=== PATIENT | male | born 1975 | race Caucasian/White ===

== ENCOUNTER 2021-09-23 01:59 | Outpatient (CLI) | payer MEDICAID, SELFPAY ==
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
== END 2021-09-23 02:19 ==
PROVIDERS: PCP Nurse Practitioner Family; Visit Provider Physician Assistant
DX: M25.561 Pain in right knee (principal); M25.461 Effusion, right knee; M17.11 Unilateral primary osteoarthritis, right knee
CPT/HCPCS: 73562

== ENCOUNTER 2021-10-17 14:52 | Outpatient (REF) | payer MEDICAID, SELFPAY ==
[2021-10-17 15:28] LABS: HCT 51.5 % (40.0-50.0); HGB 16.6 g/dL (13.5-17.5); MCH 30.5 pg (27.0-33.0); MCHC 32.2 % (32.0-36.0); MCV 95 fL (80-95); MPV 10.5 fL (8.0-11.0); Platelet Count 268 10^3/uL (130-400); RBC 5.45 10^6/uL (4.36-5.78); RDW 12.8 % (11.8-14.1); RDW-SD 44.6 fL; WBC 12.07 10^3/uL (4.4-10.8)
[2021-10-17 15:34] LABS: ESR 10 mm/hr (0-15)
[2021-10-17 17:05] LABS: ALT 70 U/L (16-63); Albumin 4.1 g/dL (3.4-5.0); Alkaline Phosphatase 83 U/L (46-116); Anion Gap 12.5 mmol/L (3-11); BUN 17 mg/dL (7-18); Bilirubin, Total 0.5 mg/dL (0.2-1.0); CO2 24.5 mmol/L (21.0-32.0); CREATININE 1.1 mg/dL (0.70-1.30); Calculated LDL 147 mg/dL (<100); Chloride 103 mmol/L (98-107); Cholesterol 235 mg/dL (<200); Glucose 134 mg/dL (74-106); HDL Cholesterol 53 mg/dL (40-60); Potassium 4.5 mmol/L (3.5-5.1); Sodium 140 mmol/L (136-145); Total Protein 7.4 g/dL (6.4-8.2); Triglyceride 179 mg/dL (<150)
[2021-10-17 18:26] LABS: AST 33 U/L (15-37)
[2021-10-17 18:50] LABS: C-Reactive Protein 0.37 mg/dL (0.0-0.3)
[2021-10-19 15:26] LABS: Anaplasma phagocytophilum Negative (Negative); B. miyamotoi PCR Negative (Negative); Babesia divergens/MO-1 Negative (Negative); Babesia duncani Negative (Negative); Babesia microti Negative (Negative); Ehrlichia chaffeensis Negative (Negative); Ehrlichia ewingii/canis Negative (Negative); Ehrlichia muris eauclairensis Negative (Negative)
[2021-10-20 11:07] LABS: Lyme Ab w Rflx to Lyme Confirm Negative (Negative)
== END 2021-10-17 14:53 | disposition home or self-care (01) ==
LOC: NCHCN 14:52
PROVIDERS: PCP Nurse Practitioner Family; Visit Provider Physician Assistant
DX: M25.59 Pain in other specified joint (principal); R53.83 Other fatigue
CPT/HCPCS: 80053; 80061; 85027; 85652; 87798; 86140; 86618

== ENCOUNTER 2022-11-29 01:46 | Emergency (ER) | payer MEDICAID, SELFPAY ==
[2022-11-29] VITALS (114 sets, daily range): BP systolic 93–168; BP diastolic 69–98; PULSE 100–123; RESP 8–29; TEMP 36.6–37.6; O2SAT 94–99
--- NOTE | 2022-11-29 | DI.CT_ITS ---
Exam(s) CT THORACIC LUMBAR SPINE REC EXAM: CT THORACIC LUMBAR SPINE REC CLINICAL HISTORY: [facility] Requesting Spine Recons. TECHNIQUE: Imaging Protocol: Axial, coronal and sagittal images were reconstructed from the chest ab domen and pelvic CT utilizing bone algorithm.. COMPARISON: CT CT CHEST/ABD/PEL W from 11/29/2022 FINDINGS: Thoracic spine: Bones: No fractures are seen. The alignment of the spine is normal including the cervicothoracic arnaud ction. Soft tissues: The soft tissues of the chest are unremarkable. No large disk herniations are identifie d. Lumbar spine: No fracture is identified. Mild degenerative disc changes and facet degenerative miramontes es are present. Soft tissues: There is no large disc herniation. No paraspinal hematoma. IMPRESSION: No acute abnormality of the thoracic or lumbar spine. RADIATION DOSE DELIVERED: Total DLP DATA REPOSITORY: All CT scans at this facility are submitted to the National Radiology Data Registry (NRDR) Dose Index Registry (DIR) with the [employer] (ACR). RADIATION OPTIMIZATION: All CT scans at this facility use at least one of these dose optimization te chniques: automated exposure control; mA and/or kV adjustment per patient size (includes targeted exa ms where dose is matched to clinical indication); or iterative reconstruction.
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
[2022-11-29 02:45] LABS: Abs Immature Grans 0.08 10^3/uL (0.0-0.06); Absolute Basophil Count 0.05 10^3/uL (0.0-0.2); Basophils % 0.3; Eosinophils % 0.2; HCT 46.7 % (40.0-50.0); HGB 15.5 g/dL (13.5-17.5); Immature Grans % 0.5; Lymphocytes % 13.1; MCH 30.6 pg (27.0-33.0); MCHC 33.2 % (32.0-36.0); MCV 92 fL (80-95); Monocytes % 6.6; Neutrophils % 79.3; Platelet Count 249 10^3/uL (130-400); RBC 5.06 10^6/uL (4.36-5.78); RDW 13.1 % (11.8-14.1); RDW-SD 44.1 fL; WBC 16.46 10^3/uL (4.4-10.8)
[2022-11-29 02:46] LABS: Absolute Eosinophil Count 0.03 10^3/uL (0.0-0.7); Absolute Lymphocyte Count 2.16 10^3/uL (1.2-3.4); Absolute Monocyte Count 1.09 10^3/uL (0.1-0.8); Absolute Neutrophil Count 13.05 10^3/uL (1.2-6.7)
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
[2022-11-29 02:54] LABS: ALT 60 U/L (16-63); AST 38 U/L (15-37); Alkaline Phosphatase 86 U/L (46-116); Anion Gap 14.8 mmol/L (3-11); BUN 21 mg/dL (7-18); Bilirubin, Total 0.4 mg/dL (0.2-1.0); CO2 22.2 mmol/L (21.0-32.0); CREATININE 1.3 mg/dL (0.70-1.30); Calcium 8.4 mg/dL (8.5-10.1); Chloride 103 mmol/L (98-107); Estimated GFR 67.34 (mL/min/1.73m2); Glucose 131 mg/dL (74-106); Sodium 140 mmol/L (136-145); Total Protein 7.8 g/dL (6.4-8.2)
[2022-11-29] MEDS: Ketorolac 15 MG/ML VIAL IVP (03:13)
[2022-11-29] MEDS: Normal Saline 1,000 ML 1000 ML IV (03:14)
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
[2022-11-29] MEDS: Omnipaque 350 MG/ML 100 ML BTL IJ (03:39)
[2022-11-29] MEDS: Normal Saline - Diluent 50 ML VIAL IV (03:39)
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
--- NOTE | 2022-11-29 05:51 | NUR.NOTE ---
Nursing Note:Splint applied to left lower leg by ED provider, Pt tolerated well, pain meds offered and pt stated no need at this time
[2022-11-29] MEDS: Ondansetron 4 MG/2 ML VIAL IVP (07:20)
[2022-11-29] MEDS: MORPHine 4 MG/ML SYR 2 MG IVP (07:20)
== END 2022-11-29 07:29 | disposition short-term general hospital (02) ==
PROVIDERS: Emergency Provider Emergency Medicine; PCP Nurse Practitioner Family
DX: S82.202A Unspecified fracture of shaft of left tibia, initial encounter for closed fracture (principal); S82.402A Unspecified fracture of shaft of left fibula, initial encounter for closed fracture; V28.49XA Other motorcycle driver injured in noncollision transport accident in traffic accident, initial encounter
CPT/HCPCS: 36415; 74177; 80053; 96361; 96374; 96375; 99285; 70450; 71260; 72125; 73590; 85025; J1885; J2270; J2405; J3490

== ENCOUNTER 2023-04-14 10:38 | Outpatient (REF) | payer MEDICAID, SELFPAY ==
[2023-04-14 14:44] LABS: Calculated LDL 140 mg/dL (<100); Cholesterol 207 mg/dL (<200); HDL Cholesterol 43 mg/dL (40-60); Triglyceride 120 mg/dL (<150)
== END 2023-04-14 10:39 | disposition home or self-care (01) ==
LOC: NCHCN 10:38
PROVIDERS: PCP Nurse Practitioner Family; Visit Provider Physician Assistant
DX: E78.5 Hyperlipidemia, unspecified (principal)
CPT/HCPCS: 80061

== ENCOUNTER 2024-05-08 16:24 | Outpatient (REF) | payer MEDICAID, SELFPAY ==
[2024-05-08 20:03] LABS: HCT 50.4 % (40.0-50.0); HGB 16.6 g/dL (13.5-17.5); MCH 30.9 pg (27.0-33.0); MCHC 32.9 % (32.0-36.0); MCV 94 fL (80-95); MPV 10.5 fL (8.0-11.0); Platelet Count 282 10^3/uL (130-400); RBC 5.37 10^6/uL (4.36-5.78); RDW 13.1 % (11.8-14.1); RDW-SD 45.3 fL; WBC 12.96 10^3/uL (4.4-10.8)
[2024-05-08 20:40] LABS: Hemoglobin A1C 5.8 % (<5.7)
[2024-05-08 20:43] LABS: ALT 54 U/L (16-63); AST 29 U/L (15-37); Albumin 4.5 g/dL (3.4-5.0); Alkaline Phosphatase 81 U/L (46-116); Anion Gap 14.6 mmol/L (3-11); BUN 16 mg/dL (7-18); Bilirubin, Total 0.78 mg/dL (0.2-1.0); CO2 23.4 mmol/L (21.0-32.0); Calcium 9.4 mg/dL (8.5-10.1); Chloride 104 mmol/L (98-107); Estimated GFR 91.69 (mL/min/1.73m2); Glucose 113 mg/dL (74-106); Potassium 4.8 mmol/L (3.5-5.1); Sodium 142 mmol/L (136-145); Total Protein 8.1 g/dL (6.4-8.2)
[2024-05-09 18:12] LABS: PSA, Screening 2.1 ng/mL (<=3.5)
== END 2024-05-08 16:25 | disposition home or self-care (01) ==
LOC: NCHCN 16:24
PROVIDERS: PCP Physician Assistant; Visit Provider Physician Assistant
DX: I10 Essential (primary) hypertension (principal); Z13.1 Encounter for screening for diabetes mellitus; Z12.5 Encounter for screening for malignant neoplasm of prostate
CPT/HCPCS: 80053; 84153; 85027; 83036

== ENCOUNTER 2025-02-05 18:51 | Emergency (ER) | payer MEDICAID, SELFPAY ==
[2025-02-05 18:52] VITALS: BP 162/86; PULSE 90; RESP 18; TEMP 37.1; O2SAT 98
--- NOTE | 2025-02-05 19:20 | ED.GENADUL_ITS ---
Discharge Plan Disposition Patient Disposition: Home Condition: Stable Discharge Details Clinical Impression: Lumbar back pain Primary Care Provider: Justyn Freeman ED Provider: Siemon Jensen Home Meds and New Rx's Prescriptions: New cyclobenzaprine 10 mg tablet 10 mg PO TID PRNQty: 20 0RF Continued valsartan 160 mg tablet 160 mg PO DAILY albuterol sulfate [Ventolin HFA] 90 mcg/actuation HFA aerosol inhaler 2 puff inhalation Q6H PRN amlodipine 5 mg tablet 5 mg PO DAILY Patient Comments: TAKE ONE TABLET BY MOUTH EVERY DAY gabapentin 300 mg capsule 300 mg PO DAILY PRN Patient Comments: TAKE ONE CAPSULE BY MOUTH EVERY EVENING BEFORE SLEEP ibuprofen 200 MG capsule 400 mg PO PRN PRN Discharge Instructions Additional Instructions: You can take 1000 mg of acetaminophen and 600 mg of ibuprofen every 6 hours as needed. Follow-up with a primary care provider if your pain continues. I would recommend seeing physical therapy as well. If you feel more ill or have new symptoms such as high fevers or inability to urinate return to the emergency department for reevaluation. Stand Alone Forms: Physical Therapy Referral HPI General Mode of arrival: ambulatory . Date/Time Provider Initiated Documentation: 02/05/25 18:57 . Limitations to Documentation: no limitations . Information obtained by: patient . History of Present Illness 49 year old M presents to the emergency department with the chief complaint of lower back pain, described as moderate, Quality is described as aching, and is localized to the back. Patient reports no radiation. Patient started experiencing this year(s) (3) and it has been constant. No relieving factors improve symptom(s), No exacerbating factors reported . Patient notes no other symptoms.. Patient did receive the following treatments prior to arrival, NSAID Related Data Home Medications ?Medication ?Instructions ?Recorded ?Confirmed ibuprofen 200 mg capsule 400 mg PO PRN PRN 07/14/16 0 02/05/25 albuterol sulfate 90 mcg/actuation 2 puff inhalation Q 6H PRN 05/10/24 02/05/25 aerosol inhaler (Ventolin HFA) valsartan 160 mg tablet 160 mg PO DAILY 05/10/2401/22 amlodipine 5 mg tablet 5 mg PO DAILY 02/05/2502/05 cyclobenzaprine 10 mg tablet 10 mg PO TID PRN #20 tabs 02/05/25 gabapentin 300 mg capsule 300 mg PO DAILY PRN 02/05/25 02/05/25 Previous Rx's ?Medication ?Instructions ?Recorded cyclobenzaprine 10 mg tablet 10 mg PO TID PRN #20 tabs 02/05/25 Allergies Allergy/AdvReac Type Severity Reaction Status Date / Time lisinopril AdvReac Mild cough Verified 02/05/25 20:48 General Stated Complaint: Nk/Back Pain SUZE: 4 Review of Systems All systems reviewed & are unremarkable except as noted in HPI and below Constitutional Constitutional: Denies chills, Denies fever(s) and Denies weakness Cardiovascular Cardiovascular: Denies chest pain and Denies dyspnea Respiratory Respiratory: Denies cough and Denies dyspnea Gastrointestinal Gastrointestinal: Denies abdominal pain, Denies nausea and Denies vomiting Genitourinary Genitourinary: Denies dysuria Musculoskeletal Musculoskeletal: Reports back pain Integumentary/Breasts Skin/Breast: Denies rash Neurologic Neurologic: Denies weakness Exam Const General: no acute distress Orientation: alert HENMT Head: normal to inspection Ears: external ears normal General nose exam: external nose normal Mouth: moist mucous membranes Eyes General: appearance normal, both eyes and all related structures Neck Neck: normal visual inspection Resp Effort & Inspection: normal respiratory effort and able to speak in complete sentences Cardio Rate: regular rate Back/Spine/Pelvis Back: no CVA tenderness Cervical Spine: No cervical spinal tenderness Thoracic/Lumbar Spine: paraspinal tenderness, No thoracic spinal tenderness and No lumbar spinal tenderness Skin General skin exam: no rashes or lesions noted Neuro General: patient alert and patient oriented x3 Extrem General: normal to inspection Psych Mental Status: mental status grossly normal Course Vital Signs Vital signs: Vital Signs Temperature 37.1 C 02/05/25 18:52 Pulse 90 02/05/25 18:52 Respiratory Rate 18 02/05/25 18:52 Blood Pressure 162/86 H 02/05/25 18:52 Pulse Oximetry 98 02/05/25 18:52 Temperature 37.1 C 02/05/25 18:52 Pulse 90 02/05/25 18:52 Respiratory Rate 18 02/05/25 18:52 Blood Pressure 162/86 H 02/05/25 18:52 Pulse Oximetry 98 02/05/25 18:52 Pain Level 02/05/25 18:52 Medical Decision Making 49-year-old male says he has had chronic issues with his lower back comes in with lower back pain similar to prior back pain. He says he gets flares up with pain pretty commonly. Denies any fevers, chills, IV drug use. Denies any changes in bowel or bladder habits. He localizes the pain to the lower back lateral to the midline over the paraspinous muscles. He has no CVA tenderness, no abdominal tenderness. No leg swelling. He has no saddle anesthesia. I suspect degenerative disc disease versus sciatica versus disc herniation. He has no findings on exam or history to suggest cauda equina or spinal epidural abscess. Since never had x-rays of his lower back so we will proceed with x- rays to evaluate possible entities such as compression fractures. Will treat his symptoms with Toradol and Flexeril and reassess. Patient feels better, x-ray my read shows no acute findings, he is requesting discharge. I will call him if vrad sees anything of concern. He will follow- up with his PCP. I am also giving him a physical therapy evaluation referral. Return precautions given Differential Diagnosis Differential Diagnosis: Degenerative disc disease, arthritis, disc herniation, sciatica PFSH All Active Problems (Updated 02/05/25 @ 21:10 by Simeon Jensen MD) Lumbar back pain (Acute) Essential hypertension (Acute) Nicotine dependence (Acute) Hyperlipidemia (Acute) Medical History (Updated 02/05/25 @ 21:10 by Simeon Jensen MD) Fracture of left tibia and fibula Pain, joint, knee, right Social History Smoking/Tobacco Use Status: Current every day Tobacco Type: cigarettes Smoking risk assessment performed?: Yes Alcohol Intake: current Alcohol Intake frequency: 0-2 drinks per day Alcohol type: beer and hard liquor Drug use: Occasionally Substance use type: marijuana Details: admits to large amounts of ETOH tonight Housing: apartment Do you feel safe at home: Yes Do you feel safe in your relationship?: Yes
[2025-02-05] MEDS: Cyclobenzaprine 10 MG TAB PO (19:28)
[2025-02-05] MEDS: Ketorolac 15 MG/ML VIAL IM (19:29)
--- NOTE | 2025-02-05 19:30 | DI.RAD_ITS ---
Exam(s) XR LUMBAR SPINE COMPLETE EXAM: XR LUMBAR SPINE COMPLETE CLINICAL HISTORY: lower back pain. TECHNIQUE: 2D digital imaging was performed. COMPARISON: No exams were available for comparison FINDINGS: Five views No evidence of fracture, listhesis, nor pars interarticularis defects. The disc spaces exhibit normal height at each level. Mild osseous lipping is noted at the L2-3 and L3-4 levels which may indicate an element of degenerative disc disease despite normal disc height. Facet joints appear unremarkable as do the sacroiliac joints. There is no scoliosis. Bone density normal. No osseous lesions. IMPRESSION: No acute osseous findings. DATA REPOSITORY: RADIATION DOSE DELIVERED:
--- NOTE | 2025-02-05 21:14 | DI.VRAD_ITS ---
PROCEDURE INFORMATION: Exam: XR Lumbosacral Spine Exam date and time: 02/05/2025 7:55 PM Age: 49 years old Clinical indication: Low back pain and sciatica; Bilateral; Additional info: Lower back pain TECHNIQUE: Imaging protocol: Radiologic exam of the lumbosacral spine. Views: 4 or 5 views. COMPARISON: CT THORACIC LUMBAR SPINE REC 11/29/2022 3:28 AM FINDINGS: Bones/joints: No acute compression deformities. There are mild degenerative changes including mild intervertebral disc space narrowing, endplate sclerosis, and osteophytosis. No acute fracture. Normal alignment. Soft tissues: Unremarkable. IMPRESSION: No acute findings. Mild degenerative change. No spondylolysis or spondylolisthesis. Dictated and Authenticated by: Roseanne Gutierrez MD. Orderin Camila Hendrix MD
[2025-02-05 21:16] VITALS: BP 148/89; PULSE 82; RESP 18; TEMP 37.1; O2SAT 95
== END 2025-02-05 21:22 | disposition home or self-care (01) ==
PROVIDERS: Emergency Provider Emergency Medicine; PCP Physician Assistant
DX: M54.50 Low back pain, unspecified (principal)
CPT/HCPCS: 99284; 99283; 96372; 72110; J1885

== ENCOUNTER 2025-03-14 10:02 | Outpatient (REF) | payer MEDICAID, SELFPAY ==
[2025-03-14 17:13] LABS: ALT 59 U/L (16-63); AST 27 U/L (15-37); Albumin 4.2 g/dL (3.4-5.0); Alkaline Phosphatase 73 U/L (46-116); Anion Gap 11.9 mmol/L (3-11); BUN 13 mg/dL (7-18); Bilirubin, Total 0.7 mg/dL (0.2-1.0); CO2 26.1 mmol/L (21.0-32.0); Calcium 9.2 mg/dL (8.5-10.1); Calculated LDL 127 mg/dL (<100); Chloride 102 mmol/L (98-107); Cholesterol 200 mg/dL (<200); Estimated GFR 107.15 (mL/min/1.73m2); Glucose 106 mg/dL (74-106); HDL Cholesterol 50 mg/dL (>or=40); Potassium 4.5 mmol/L (3.5-5.1); Sodium 140 mmol/L (136-145); Total Protein 7.4 g/dL (6.4-8.2); Triglyceride 116 mg/dL (<150)
[2025-03-15 17:37] LABS: PSA, Screening 2.1 ng/mL (<=3.5)
== END 2025-03-14 10:03 | disposition home or self-care (01) ==
LOC: NCHCN 10:02
PROVIDERS: PCP Physician Assistant; Visit Provider Physician Assistant
DX: E78.5 Hyperlipidemia, unspecified (principal); Z12.5 Encounter for screening for malignant neoplasm of prostate
CPT/HCPCS: 80053; 80061; 84153